=== PATIENT | female | born 1960 | race Caucasian/White ===

== ENCOUNTER 2017-05-01 16:34 | Emergency (ER) | payer OTHER ==
[2017-05-01 16:46] VITALS: BP 105/73
--- NOTE | 2017-05-01 16:49 | ED Physician Documentation ---
PD HPI UPPER EXT INJURY - Stated complaint Stated Complaint: R THUMB INJ - Chief complaint Chief Complaint: Ext Problem - History obtained from History obtained from: Patient - History of Present Illness Location: Right, Finger (thumb) Type of injury: Fall Timing - onset: Today Timing - details: Abrupt onset, Still present (she fell and landed forward with abrasion to the left knee but main injury is right thumb got bent/ injured, with pain at IP joint with swelling and early bruising.) Worsened by: Moving, Palpating Associated symptoms: Swelling, Discolored (bruised color). 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, Breast reduction - Present Medications Home Medications: Ambulatory Orders Medication Instructions Recorded Confirmed No Known Home Medications [No 09/16/14 05/01/17 Known Home Medications] - Allergies Allergies/Adverse Reactions: Allergies Allergy/AdvReac Type Severity Reaction Status Date / Time No Known Drug Allergies Allergy Verified 09/16/14 17:13 - Social History Does the pt smoke?: No Smoking Status: Never smoker Does the pt drink ETOH?: Yes Does the pt have substance abuse?: No - POLST Patient has POLST: No PD ED PE NORMAL - Vitals Vital signs reviewed: Yes - General General: Alert and oriented X 3, No acute distress, Well developed/nourished - HEENT HEENT: Atraumatic - Neck Neck: Supple, no meningeal sign - Derm Derm: Normal color, Warm and dry - Extremities Extremities: Other (normal gait and ROM of the knees. Right thumb with tenderness and swelling with some bruising at IP area nd proximal phalanx. Normal color and cap refill at tip. ) - Neuro Neuro: Alert and oriented X 3, No motor deficit, No sensory deficit, Normal speech Results - Vitals Vitals: Vital Signs - 24 hr 05/01/17 16:43 Temperature 36.5 C Heart Rate 74 Respiratory 18 Rate Blood Pressure 105/73 O2 Saturation 99 Oxygen O2 Source Room air - Rads (name of study) thumb Radiology: Prelim report reviewed, EMP read contemporaneously (no fractures) PD MEDICAL DECISION MAKING - ED course Complexity details: reviewed results, considered differential, d/w patient Departure - Departure Disposition: 01 Home, Self Care Clinical Impression: Thumb sprain Qualifiers: Encounter type: initial encounter Sprain of finger site: interphalangeal joint Laterality: right Qualified Code(s): S63.621A - Sprain of interphalangeal joint of right thumb, initial encounter Condition: Stable Record reviewed to determine appropriate education?: Yes Instructions: ED Sprain Finger Comments: Finger splint for comfort until better, days to a week. Elevate and rest it for swelling. Tylenol or Ibuprofen as needed. Recheck if not better over the next week or so. Discharge Date/Time: 05/01/17 18:00
--- NOTE | 2017-05-01 17:30 | XRAY Preliminary Report ---
Exam: XR Finger(s) RT IMPRESSION: Mild osteoarthritis. No evidence of acute fracture. [facility] SITE ID: [id number]
--- NOTE | 2017-05-01 17:33 | XRAY Report ---
EXAM: RIGHT FIRST DIGIT RADIOGRAPHY EXAM DATE: 05/01/2017 05:17 PM. CLINICAL HISTORY: Fall with thumb injury. COMPARISON: None. TECHNIQUE: 3 views. FINDINGS: Bones: Normal. No fracture or bone lesion. Joints: Mild osteoarthritis of the first carpometacarpal joint. Soft Tissues: Normal. No soft tissue swelling. IMPRESSION: Mild osteoarthritis. No evidence of acute fracture. [facility] Referring Provider Line: [phone] SITE ID: [id number]
== END 2017-05-01 18:00 | disposition home or self-care (01) ==
LOC: ED 16:34
DX: S63.621A Sprain of interphalangeal joint of right thumb, initial encounter (principal); S60.011A Contusion of right thumb without damage to nail, initial encounter; S80.212A Abrasion, left knee, initial encounter; W19.XXXA Unspecified fall, initial encounter
CPT/HCPCS: 29130; 73140; 99282; 99283

== ENCOUNTER 2018-01-18 16:58 | Emergency (ER) | payer OTHER ==
[2018-01-18 17:07] VITALS: BP 121/83
[2018-01-18] MEDS ORDERED: BENZOCAINE/MENTHOL LOZENGE MM STA (17:26)
--- NOTE | 2018-01-18 17:28 | ED Physician Documentation ---
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 cough TAVAREZ no fever body aches Review of Systems Constitutional: denies: Fever Throat: reports: Sore throat Respiratory: reports: Cough Immunocompromised: denies: Immunocompromised PD PAST MEDICAL HISTORY - Past Medical History Cardiovascular: None Respiratory: None Endocrine/Autoimmune: None GI: Hemorrhoids : None HEENT: None Psych: None Musculoskeletal: None Derm: None - Past Surgical History Past Surgical History: Yes /SLIDE ATTENDANT: section, Breast reduction - Present Medications Home Medications: Ambulatory Orders Medication Instructions Recorded Confirmed Dextromethorphan/Benzocaine 1 each PO Q4H PRN #20 lozenge 01/18/18 [Cepacol Sorethroat-Cough Ludmila] guaiFENesin/DEXTROMETHORPHAN 10 ml PO Q6H PRN #120 ml 01/18/18 [Robitussin Dm] - Allergies Allergies/Adverse Reactions: Allergies Allergy/AdvReac Type Severity Reaction Status Date / Time No Known Drug Allergies Allergy Verified 01/18/18 17:07 - Social History Does the pt smoke?: No Smoking Status: Never smoker Does the pt drink ETOH?: Yes Does the pt have substance abuse?: No - POLST Patient has POLST: No PD ED PE NORMAL - Vitals Vital signs reviewed: Yes - HEENT HEENT: Ears normal, Other (s/p tonsillectomy, erythema, no trismus) - Neck Neck: Supple, no meningeal sign - Cardiac Cardiac: RRR - Respiratory Respiratory: No respiratory distress, Clear bilaterally - Abdomen Abdomen: Soft, Non tender - Derm Derm: Normal color - Neuro Neuro: Alert and oriented X 3 Results - Vitals Vitals: Vital Signs - 24 hr 01/18/18 17:06 Temperature 36.4 C L Heart Rate 62 Respiratory 16 Rate Blood Pressure 121/83 H O2 Saturation 96 Oxygen O2 Source Room air - Labs Labs: Laboratory Tests 01/18/18 17:18 Group A Strep Rapid Negative Departure - Departure Clinical Impression: Pharyngitis Qualifiers: Pharyngitis/tonsillitis etiology: unspecified etiology Qualified Code(s): J02.9 - Acute pharyngitis, unspecified Condition: Good Instructions: ED Pharyngitis Viral Report Pending Prescriptions: Dextromethorphan/Benzocaine [Cepacol Sorethroat-Cough Ludmila] 1 each PO Q4H PRN # 20 lozenge PRN Reason: sore throat guaiFENesin/DEXTROMETHORPHAN [Robitussin Dm] 10 ml PO Q6H PRN #120 ml PRN Reason: Cough Comments: The rapid strep test was negative An official throat culture will also be run and the ER staff will call you if the culture is positive and antibiotics are needed. For now, it looks like this is a viral infection - recommend tylenol and motrin as needed for fever, throat lozenges for the sore throat, and robitussin DM for the cough
== END 2018-01-18 18:05 | disposition home or self-care (01) ==
LOC: ED 16:58
DX: J02.9 Acute pharyngitis, unspecified (principal)
CPT/HCPCS: 87070; 87430; 99283; A9270

== ENCOUNTER 2019-12-01 14:40 | Emergency (ER) | payer OTHER ==
[2019-12-01] MEDS ORDERED: SUCRALFATE 1 GM/10 ML UDC PO STA (15:21)
[2019-12-01] MEDS ORDERED: LIDOCAINE VISCOUS 2% 15 ML UDC MM STA (15:21)
[2019-12-01] MEDS ORDERED: MAG HYDROX/AL HYDROX/SIMETH 30 ML UDC PO STA (15:21)
[2019-12-01 15:23] LABS: BASOPHILS % (AUTO) 0.2 %; EOSINOPHILS # (AUTO) 0.1 10^3/uL (0.0-0.7); EOSINOPHILS % (AUTO) 1.4 %; LYMPHOCYTES # (AUTO) 1.8 10^3/uL (1.5-3.5); LYMPHOCYTES % (AUTO) 40.1 %; MEAN CORPUSCULAR HEMOGLOBIN 28.3 pg (27.0-31.0); MEAN CORPUSCULAR HGB CONC 33.5 g/dL (32.0-36.0); MEAN CORPUSCULAR VOLUME 84.5 fL (81.0-99.0); MEAN PLATELET VOLUME 9.8 fL (7.9-10.8); MONOCYTES # (AUTO) 0.3 10^3/uL (0.0-1.0); MONOCYTES % (AUTO) 7.5 %; NEUTROPHILS # (AUTO) 2.2 10^3/uL (1.5-6.6); NEUTROPHILS % (AUTO) 50.6 %; PLT - PLATELET COUNT 238 10^3/uL (130-450); RED BLOOD COUNT 4.59 10^6/uL (4.20-5.40); RED CELL DISTRIBUTION WIDTH 12.9 % (12.0-15.0); WHITE BLOOD COUNT 4.4 x10^3/uL (4.8-10.8)
[2019-12-01] MEDS ORDERED: IOVERSOL 320 100 ML VIAL IVP ONE ×2 (15:23→16:10)
[2019-12-01 15:29] LABS: BILIRUBIN,URINE NEGATIVE (NEGATIVE); GLUCOSE, URINE (UA) NEGATIVE (NEGATIVE); KETONES,URINE (UA) NEGATIVE (NEGATIVE); LEUKOCYTE ESTERASE, URINE NEGATIVE (NEGATIVE); NITRITE,URINE NEGATIVE (NEGATIVE); OCCULT BLOOD,URINE NEGATIVE (NEGATIVE); PROTEIN,URINE NEGATIVE (NEGATIVE); UROBILINOGEN,URINE 0.2 (NORMAL) E.U./dL (NORMAL)
[2019-12-01 15:35] LABS: ALBUMIN 4.1 g/dL (3.2-5.5); ALBUMIN/GLOBULIN RATIO 1.2 (1.0-2.2); BILIRUBIN,TOTAL 0.3 mg/dL (0.2-1.0); CALCIUM 9.3 mg/dL (8.5-10.3); CREATININE 0.7 mg/dL (0.4-1.0); TOTAL PROTEIN 7.4 g/dL (6.7-8.2)
[2019-12-01 15:36] LABS: CLARITY,URINE CLEAR (CLEAR)
--- NOTE | 2019-12-01 15:51 | ED Physician Documentation ---
PD HPI ABD PAIN - Stated complaint Stated Complaint: ABD PX - Chief complaint Chief Complaint: Abd Pain - History obtained from History obtained from: Patient - History of Present Illness Timing - onset: How many months ago (1) Timing - duration: Months (1) Timing - details: Constant Pain level max: 5 Pain level now: 5 Quality: Other ("uncomfortable") Location: Epigastric Radiation: No: Chest, , Lower back, Left flank, Left shoulder, Right flank, Right shoulder, Upper back Improved by: Eating Worsened by: Palpation Associated symptoms: Nausea. No: Fever, Vomiting, Hematemesis, Diarrhea, Constipation, Melena, Hematochezia, Dysuria, Weight loss Similar symptoms before: Has not had sx before Recently seen: Not recently seen - Additional information Additional information: also complains of feeling bloated and uncomfortable. hasn't taken anything for i t. 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 12/01/19 Sucralfate [Carafate] 1 gm PO ACHS #60 tablet 12/01/19 - Allergies Allergies/Adverse Reactions: Allergies Allergy/AdvReac Type Severity Reaction Status Date / Time No Known Drug Allergies Allergy Verified 12/01/19 14:51 - Social History Does the pt smoke?: No Smoking Status: Never smoker Does the pt drink ETOH?: Yes Does the pt have substance abuse?: No - POLST Patient has POLST: No PD ED PE NORMAL - Vitals Vital signs reviewed: Yes - General General: Alert and oriented X 3, No acute distress, Well developed/nourished - HEENT HEENT: Moist mucous membranes - Neck Neck: Supple, no meningeal sign - Cardiac Cardiac: RRR, Strong equal pulses - Respiratory Respiratory: No respiratory distress, Clear bilaterally - Abdomen Abdomen: Soft, Non distended, Other (tender to palpation epigastric without peritoneal signs. No palpable masses. Negative Goldman sign. No peritoneal signs) - Derm Derm: Warm and dry - Extremities Extremities: No edema - Neuro Neuro: Alert and oriented X 3 - Psych Psych: Normal mood, Normal affect Results - Vitals Vitals: Vital Signs - 24 hr 12/01/19 12/01/19 14:49 17:30 Temperature 36.3 C L Heart Rate 87 63 Respiratory 14 16 Rate Blood Pressure 124/86 H 111/78 O2 Saturation 100 99 Oxygen O2 Source Room air - Labs Labs: Laboratory Tests 12/01/19 12/01/19 12/01/19 15:06 15:06 15:12 WBC 4.4 L RBC 4.59 Hgb 13.0 Hct 38.8 MCV 84.5 MCH 28.3 MCHC 33.5 RDW 12.9 Plt Count 238 MPV 9.8 Neut # (Auto) 2.2 Lymph # (Auto) 1.8 [place] # (Auto) 0.3 Eos # (Auto) 0.1 Baso # (Auto) 0.0 Absolute Nucleated RBC 0.00 Nucleated RBC % 0.0 Sodium 137 Potassium 4.1 Chloride 105 Carbon Dioxide 24 Anion Gap 8.0 BUN 18 Creatinine 0.7 Estimated GFR (MDRD) 86 L Glucose 131 H Calcium 9.3 Total Bilirubin 0.3 AST 28 ALT 20 Alkaline Phosphatase 47 Total Protein 7.4 Albumin 4.1 Globulin 3.3 Albumin/Globulin Ratio 1.2 Lipase 39 Urine Color YELLOW Urine Clarity CLEAR Urine pH 6.0 Ur Specific [place] 1.010 Urine Protein NEGATIVE Urine Glucose (UA) NEGATIVE Urine Ketones NEGATIVE Urine Occult Blood NEGATIVE Urine Nitrite NEGATIVE Urine Bilirubin NEGATIVE Urine Urobilinogen 0.2 (NORMAL) Ur Leukocyte Esterase NEGATIVE Ur Microscopic Review NOT INDICATED Urine Culture Comments NOT INDICATED - Rads (name of study) CT abd/pelvis Radiology: Prelim report reviewed, EMP read contemporaneously, See rad report (1. Mild dilatation of the common bile duct, new from prior. No obvious obstructing radiopaque stone or mass identified. Recommend correlation with liver function tests to exclude obstruction. Consider MRCP for further evaluation if clinically indicated. 2. Nonspecific gastric distention. Correlate with history of recent meal versus delayed gastric emptying. 3. Moderate amount of stool throughout the small bowel and colon. Small bowel feces sign is present which can be seen in delayed transit. 4. There is left inguinal lymphadenopathy, likely reactive. Findings may represent sequela of lower extremity infection. ) PD MEDICAL DECISION MAKING - ED course Complexity details: reviewed results, re-evaluated patient, considered differential, d/w patient, d/w family ED course: Patient with epigastric pain that is better after GI cocktail. Will place on a PPI for home. CT of the abdomen pelvis shows mild dilatation of the common bile duct which is new from prior. Normal LFTs. She will obtain an MRCP as an outpatient. Nonspecific gastric distention as well. She does have some constipation. This is a chronic problem for her. Has left inguinal lymphadenopathy as well, no signs of infection in the left lower extremity. Patient is well-appearing, nontoxic. Counseled regarding dietary changes. Patient counseled regarding signs and symptoms for which I believe and urgent re-evaluation would be necessary. Patient with good understanding of and agreement to plan and is comfortable going home at this time This document was made in part using voice recognition software. While efforts are made to proofread this document, sound alike and grammatical errors may o ccur. Departure - Departure Disposition: 01 Home, Self Care Clinical Impression: Abdominal pain Qualifiers: Abdominal location: epigastric Qualified Code(s): R10.13 - Epigastric pain Condition: Good Instructions: ED Abdominal Pain Unkn Cause, ED PUD Vs Gastritis Follow-Up: your,doctor in 1 week [Other] Prescriptions: Esomeprazole Magnesium [Nexium] 40 mg PO DAILY #30 capsule. Sucralfate [Carafate] 1 gm PO ACHS #60 tablet Comments: Eat a bland diet. Return if you worsen. You need to follow up with your doctor for an MRCP of your liver. Return for worsening pain, fever, or other new symptoms. FINDINGS: Imaged chest: Unremarkable. Liver: Unremarkable. Gallbladder: Unremarkable. No radiopaque gallstones identified. Biliary: Mild dilatation of the common bile duct, new from prior. There is persistent mild intrahepatic biliary dilatation. Pancreas: Unremarkable. Spleen: Unremarkable. Adrenal glands: Unremarkable. Kidneys: Unremarkable. Urinary bladder: Unremarkable. Reproductive organs: Unremarkable. Bowel: --Limited evaluation of the bowel given paucity of intra-abdominal fat. --Moderate volume of stool throughout the bowel. Small bowel feces sign is present. Stomach: Nonspecific gastric distention containing debris present recent meal. Appendix: The appendix is not reliably identified, however, there are no secondary signs of acute appendicitis. Miscellaneous: No free fluid. No extraluminal gas. Aorta: No significant aortic atherosclerosis. Normal in caliber. Lymph nodes: There is left inguinal lymphadenopathy. Bones: No acute fracture. No suspicious osseous lesions. Sidewalls: Unremarkable. IMPRESSION: 1. Mild dilatation of the common bile duct, new from prior. No obvious obstructing radiopaque stone or mass identified. Recommend correlation with liver function tests to exclude obstruction. Consider MRCP for further evaluation if clinically indicated. 2. Nonspecific gastric distention. Correlate with history of recent meal versus delayed gastric emptying. 3. Moderate amount of stool throughout the small bowel and colon. Small bowel feces sign is present which can be seen in delayed transit. 4. There is left inguinal lymphadenopathy, likely reactive. Findings may represent sequela of lower extremity infection. Discharge Date/Time: 12/01/19 17:32
--- NOTE | 2019-12-01 16:42 | CT Report ---
Reason: abdominal pain Procedure Date: 12/01/2019 Accession Number: [id number] / [id number] Procedure: CT - Abdomen/Pelvis W CPT Code: Final Report FULL RESULT: EXAM: CT ABDOMEN AND PELVIS EXAM DATE: 12/01/2019 04:07 PM. CLINICAL HISTORY: Abdominal pain. Bloating and abdominal pain for 1 month. Stopped her stools than normal. COMPARISONS: ABDOMEN/PELVIS W/ 09/16/2014 6:03 PM. TECHNIQUE: Routine helical CT imaging was performed through the abdomen and pelvis. IV contrast: 90 cc Optiray 320. Enteric contrast: No. Reconstructions: Coronal and sagittal. In accordance with CT protocol optimization, one or more of the following dose reduction techniques were utilized for this exam: automated exposure control, adjustment of mA and/or KV based on patient size, or use of iterative reconstructive technique. FINDINGS: Imaged chest: Unremarkable. Liver: Unremarkable. Gallbladder: Unremarkable. No radiopaque gallstones identified. Biliary: Mild dilatation of the common bile duct, new from prior. There is persistent mild intrahepatic biliary dilatation. Pancreas: Unremarkable. Spleen: Unremarkable. Adrenal glands: Unremarkable. Kidneys: Unremarkable. Urinary bladder: Unremarkable. Reproductive organs: Unremarkable. Bowel: --Limited evaluation of the bowel given paucity of intra-abdominal fat. --Moderate volume of stool throughout the bowel. Small bowel feces sign is present. Stomach: Nonspecific gastric distention containing debris present recent meal. Appendix: The appendix is not reliably identified, however, there are no secondary signs of acute appendicitis. Miscellaneous: No free fluid. No extraluminal gas. Aorta: No significant aortic atherosclerosis. Normal in caliber. Lymph nodes: There is left inguinal lymphadenopathy. Bones: No acute fracture. No suspicious osseous lesions. Sidewalls: Unremarkable. IMPRESSION: 1. Mild dilatation of the common bile duct, new from prior. No obvious obstructing radiopaque stone or mass identified. Recommend correlation with liver function tests to exclude obstruction. Consider MRCP for further evaluation if clinically indicated. 2. Nonspecific gastric distention. Correlate with history of recent meal versus delayed gastric emptying. 3. Moderate amount of stool throughout the small bowel and colon. Small bowel feces sign is present which can be seen in delayed transit. 4. There is left inguinal lymphadenopathy, likely reactive. Findings may represent sequela of lower extremity infection. [facility]
[2019-12-01 17:32] VITALS: BP 111/78
== END 2019-12-01 17:32 | disposition home or self-care (01) ==
LOC: ED 14:40
DX: R10.31 Right lower quadrant pain (principal); R11.0 Nausea; K59.00 Constipation, unspecified; K83.8 Other specified diseases of biliary tract; R59.0 Localized enlarged lymph nodes
CPT/HCPCS: 36415; 74177; 80053; 81003; 83690; 85025; 99284; A9270; Q9967; 81001; 87086

== ENCOUNTER 2019-12-17 15:13 | Outpatient (CLI) | payer OTHER ==
--- NOTE | 2019-12-18 14:32 | MRI Report ---
Reason: BILIARY CYST Procedure Date: 12/17/2019 Accession Number: [id number] / [id number] Procedure: MRI - MRCP W/O CPT Code: Final Report FULL RESULT: EXAM: MR ABDOMEN WITHOUT CONTRAST (MR CHOLANGIOPANCREATOGRAPHY) EXAM DATE: 12/17/2019 05:57 PM. CLINICAL HISTORY: BILIARY CYST. COMPARISON: ABDOMEN/PELVIS W/ 09/16/2014 6:03 PM ABDOMEN/PELVIS W/ 12/01/2019 3:51 PM. TECHNIQUE: Multiplanar breath-hold T1 and T2 sequences obtained through the abdomen on an MR scanner. Dedicated 2D and 3D MRCP sequences obtained through the biliary and pancreatic ducts. No intravenous contrast given. Patient motion artifact is present on most sequences. FINDINGS: Lung Bases: The lung bases are clear. Liver: The liver has normal size, morphology and signal. No evidence of mass. The intrahepatic bile ducts appear normal. CBD: The CBD is 7 mm in diameter. Common hepatic duct measures 10 mm in diameter. (8 mm is upper limit of normal for patient age.) No intrahepatic ductal dilatation. No choledocholithiasis. Gallbladder: Contract gallbladder. Pancreas: The pancreas appears normal with no mass. The pancreatic duct measures 1 mm in diameter and appears normal with no stone or stricture. Spleen: The spleen appears normal. Kidneys and Adrenals: The kidneys appear normal with no mass or hydronephrosis. The adrenals appear normal. Bowel: The small bowel and colon appear normal with no inflammation or obstruction. Retroperitoneum: The retroperitoneal structures appear normal with no mass or lymphadenopathy. IMPRESSION: 1. Mild extrahepatic biliary ductal dilatation, with common hepatic duct measuring up to 10 mm. No choledocholithiasis demonstrated. Chronic left greater saphenous vein dilatation on prior CT studies. [facility]
== END 2019-12-17 15:14 | disposition home or self-care (01) ==
LOC: DI 15:13
PROVIDERS: ATTEND General Practice
DX: K83.8 Other specified diseases of biliary tract (principal); I86.8 Varicose veins of other specified sites
CPT/HCPCS: 74181

== ENCOUNTER 2021-07-19 17:57 | Emergency (ER) | payer OTHER ==
[2021-07-19] MEDS ORDERED: HYDROcod/ACETAM 5/325 MG TABLET PO STA (18:30)
--- NOTE | 2021-07-19 18:32 | ED Physician Documentation ---
PD HPI UPPER EXT INJURY - Stated complaint Stated Complaint: FELL,RT FOOT PX - Chief complaint Chief Complaint: Trauma Ext - History obtained from History obtained from: Patient - History of Present Illness Type of injury: Fall Timing - onset: Today - Additonal information Additional information: Going down the stairs and slipped and fell and her ankle hyper plantarflexed and she has moderate pain in the anterior and lateral ankle. No other injuries. She was able to walk and bear weight but now cannot. 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 12/01/19 Sucralfate [Carafate] 1 gm PO ACHS #60 tablet 12/01/19 HYDROcod/ACETAM 5/325 [[place] 5/325] 1 - 2 tab PO Q6H PRN #15 tablet 07/19/21 - Allergies Allergies/Adverse Reactions: Allergies Allergy/AdvReac Type Severity Reaction Status Date / Time No Known Drug Allergies Allergy Verified 07/19/21 18:08 - Social History Does the pt smoke?: No Smoking Status: Never smoker Does the pt drink ETOH?: Yes Does the pt have substance abuse?: No - POLST Patient has POLST: No PD ED PE NORMAL - Vitals Vital signs reviewed: Yes - General General: Alert and oriented X 3, No acute distress - Extremities Extremities: Other (Tender over the ATFL, no proximal fibular tenderness, mild talar dome tenderness, no deformity. No swelling at this juncture. No foot tenderness.) - Neuro Neuro: Alert and oriented X 3, Normal speech Results - Vitals Vitals: Vital Signs - 24 hr 07/19/21 18:05 Temperature 36.5 C Heart Rate 64 Respiratory 16 Rate Blood Pressure 116/76 O2 Saturation 96 Oxygen O2 Source Room air - Rads (name of study) Three-view x-ray of the right ankle Radiology: EMP read contemporaneously (normal) Departure - Departure Disposition: 01 Home, Self Care Clinical Impression: Left ankle sprain Qualifiers: Encounter type: initial encounter Involved ligament of ankle: anterior talofibular ligament Qualified Code(s): S93.492A - Sprain of other ligament of left ankle, initial encounter Condition: Good Record reviewed to determine appropriate education?: Yes Instructions: ED Sprain Ankle W X Ray Prescriptions: HYDROcod/ACETAM 5/325 [[place] 5/325] 1 - 2 tab PO Q6H PRN #15 tablet PRN Reason: Pain Comments: If not improved in a week, schedule reexamination with your physician with consideration for repeat x-rays. Otherwise you may walk and bear weight as tolerated. I am prescribing a short course of narcotic pain medication for you. These are potentially dangerous and addictive medications that should be used carefully. These medications may constipate you. Take an nddy-elf-aqiylzt stool softener (docusate) twice daily with plenty of water while taking these medications. If you go 24 hours without a bowel movement, take [id number] miralax, per package instructions. Do not drink or drive while taking these medications. If you received narcotic or sedating medications while in the emergency department, do not drive for 24 hours. Store this medication in a safe, secure place and out of reach of children. It is a violation of federal law to give or sell this medication to another person or to use in a manner other than prescribed. The ED will not refill narcotic prescriptions, including prescriptions lost or stolen. To dispose of unwanted medications: 1. [facility] at [address] in [place] has a medication drop box. They accept prescription medications (in pill form) Tuesday through Tuesday 9:00 a.m. to 5:00 p.m. 2. The [facility] accepts prescription medications (in pill form only) for disposal year round. Call for more information. 3. Contact the [facility] for the next [facility] sponsored prescription drug collection event. , [phone], or [phone]; Note that many narcotic pain relievers also contain Tylenol/acetaminophen. Please ensure that your total dose of acetaminophen from all sources does not exceed 3 g (3000 mg) per day. Forms: Activity restrictions
--- NOTE | 2021-07-19 18:57 | XRAY Report ---
PROCEDURE: Ankle 3 View RT INDICATIONS: Trauma TECHNIQUE: 3 views of the ankle were acquired. COMPARISON: None FINDINGS: Bones: No fractures or dislocations. Ankle mortise is normally aligned. No suspicious bony lesions . Soft tissues: No tibiotalar joint effusion. Achilles tendon appears normal. IMPRESSION: No acute fracture. No osseous lesion. If symptoms and/or clinical suspicion for patholog y continue, further assessment with repeat plain films, or advanced imaging (e.g., CT, MRI, or bone s can) is recommended for further assessment. Reviewed by: Manan Hernandez MD on 07/19/2021 6:56 PM PDT Approved by: Manan Hernandez MD on 07/19/2021 6:56 PM PDT Station ID: [id number]
[2021-07-19 19:26] VITALS: BP 120/80
== END 2021-07-19 19:26 | disposition home or self-care (01) ==
LOC: ED 17:57
DX: S93.491A Sprain of other ligament of right ankle, initial encounter (principal); W10.9XXA Fall (on) (from) unspecified stairs and steps, initial encounter
CPT/HCPCS: 73610; 99283; A9270

== ENCOUNTER 2023-01-09 09:10 | Emergency (ER) | payer OTHER ==
[2023-01-09 09:24] VITALS: BP 113/74
--- NOTE | 2023-01-09 10:06 | XRAY Report ---
PROCEDURE: Foot 3 View RT INDICATIONS: Trauma TECHNIQUE: 3 views of the foot were acquired. COMPARISON: None FINDINGS: Bones: No fractures or dislocations. Osteoarthritic changes are noted throughout right foot. No bri picious bony lesions. Soft tissues: Soft tissue swelling over dorsum of midfoot and hindfoot is seen. No tibiotalar joint e ffusion. Achilles tendon appears normal. IMPRESSION: No definite acute right foot fracture or dislocation. Right foot osteoarthritis. Mild dorsal midfoot and hindfoot soft tissue swelling. Reviewed by: Bill Trinh MD on 01/09/2023 10:05 AM [facility] Approved by: Bill Trinh MD on 01/09/2023 10:05 AM [facility] Station ID: [id number]
--- NOTE | 2023-01-09 11:20 | ED Physician Documentation ---
History of Present Illness - Stated complaint Stated Complaint: RT FT LUMP/BRUISE - Chief complaint Chief Complaint: Ext Problem - Additonal information Additional information: 62-year-old female provides history. Reliable historian. Patient has a history of very high prominent arches in her foot. 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 About 2 weeks ago she began caring for an /toddler that weighs about 33 pounds. She picks him up often and holds him on her right hip. Over the last week or so she has been noticing some pain in the arch of her foot with some distal numbness. She takes Aleve which initially worked manage the foot pain but it no longer does. She has had no fevers no redness and no recent history of falls or trauma. Review of Systems Constitutional: denies: Fever, Chills Nose: reports: Reviewed and negative Throat: reports: Reviewed and negative Cardiac: reports: Reviewed and negative Musculoskeletal: reports: Extremity pain PD PAST MEDICAL HISTORY - Past Medical History Cardiovascular: None Respiratory: None Endocrine/Autoimmune: None GI: Hemorrhoids : None HEENT: None Psych: None Musculoskeletal: None Derm: None - Past Surgical History Past Surgical History: Yes /FACILITY SERVICE MANAGER: section, Breast reduction - Present Medications Home Medications: Ambulatory Orders Medication Instructions Recorded Confirmed Dextromethorphan/Benzocaine 1 each PO Q4H PRN #20 lozenge 01/18/18 [Cepacol Sorethroat-Cough Ludmila] guaiFENesin/DEXTROMETHORPHAN 10 ml PO Q6H PRN #120 ml 01/18/18 [Robitussin Dm] Esomeprazole Magnesium [Nexium] 40 mg PO DAILY #30 capsule. 12/01/19 Sucralfate [Carafate] 1 gm PO ACHS #60 tablet 12/01/19 HYDROcod/ACETAM 5/325 [Wall 5/325] 1 - 2 tab PO Q6H PRN #15 tablet 07/19/21 - Allergies Allergies/Adverse Reactions: Allergies Allergy/AdvReac Type Severity Reaction Status Date / Time No Known Drug Allergies Allergy Verified 01/09/23 09:24 - Social History Does the pt smoke?: No Smoking Status: Never smoker Does the pt drink ETOH?: Yes Does the pt have substance abuse?: No - POLST Patient has POLST: No PD ED PE EXPANDED - General General: Alert, No acute distress - Extremities Extremities: Right foot (Mild swelling on the dorsum of the foot without fluctuance or erythema. Patient has prominent high riding arches on both feet. 2+ distal pulse. Full range of motion of the foot and ankle in all pains. Mildly antalgic gait on the right.) Results - Vitals Vitals: Vital Signs - 24 hr 01/09/23 09:20 Temperature 36.8 C Heart Rate 80 Respiratory 16 Rate Blood Pressure 113/74 O2 Saturation 98 Oxygen O2 Source Room air - Rads (name of study) right foot Radiology: Final report received (No definite acute right foot fracture or dislocation. Right foot osteoarthritis. 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 The patient does have very prominent high riding arches on both feet. The x-ray as interpreted by the radiologist demonstrates osteoarthritis. On examination of the foot there was some mild tenderness elicited over the dorsum of the foot and there was a small amount of swelling though no fluctuance or erythema. No fevers. Patient is ambulatory though she has mildly antalgic gait. I suspect the cause of her pain is simply activation or flare of the osteoarthritis in the foot given that she is now carrying a 33 pound toddler on her hip. I have advised her to alternate the hip with which she is holding the child or to abstain from that altogether. She is also advised to minimize the amount of walking she is consistently doing on her treadmill. She would benefit from follow-up with Ortho though [facility] or podiatry moving forward. Clinically history and exam is not consistent with an occult or stress fracture, no findings consistent with infection and history does not allude to a sprain injury. Advised to continue with Aleve and Tylenol at home. Otherwise emergent return precautions discussed Departure - Departure Disposition: Home, Self Care Clinical Impression: Osteoarthritis of right foot Qualifiers: Osteoarthritis type: primary Qualified Code(s): M19.071 - Primary osteoarthritis, right ankle and foot Condition: Stable Record reviewed to determine appropriate education?: Yes Comments: Lucy you came to the emergency department today because you have begun to have some pain in your right foot especially on the top of the foot near the arch. You have recently started lifting a heavy baby in your course of care at work. Because of your high arches and the pre-existing arthritis in this foot it appears that you have inflamed your foot. This is the cause of the local swelling. This does not appear to be consistent with an infection and the x- rays do not indicate a broken bone. I would like you to reduce the amount that you are walking over the next week or so. Attempt to avoid carrying the baby especially on your right hip. You can continue to take Aleve at home for discomfort or alternate with Tylenol. However due to your very high arches I think that you would be well suited to see a ab initio etl developer in follow-up to help manage your foot pain. Return to the ER if you develop any fevers, redness or have any deformity of the foot
== END 2023-01-09 11:24 | disposition home or self-care (01) ==
LOC: ED 09:10
DX: M19.071 Primary osteoarthritis, right ankle and foot (principal)
CPT/HCPCS: 99283